=== PATIENT | female | born 1980 | race Caucasian/White ===

== ENCOUNTER → 2016-09-11 | Outpatient (CLI) | payer BC ==
[~2016-09-11] MED LIST: ADVAIR IH; ALBUTEROL SULF0.5 ML IH; ALBUTEROL0.09 MG/A1 IH; AMOXICILLIN 50500 MG PO; CLONAZEPAM PO; DOXYCYCLINE100 M3 PO; FLAGYL500 MG PO; IBU400 MG PO; KLONOPIN 0.5MG0.5 MG PO; LEVAQUIN 750MG750 M1 PO; NORCO 325 MG-51 TAB PO; PAXIL PO; PREDNISONE20 MG PO; PRENATAL1 TA1 PO; PROVENTIL0.09 MG/A1 IH; RT ADVAIR 228 DISKUS IH; SINGULAIR 110 MG/TAB PO; VENTOLIN0.09 MG IH; WELLBUTRIN SR150 MG PO; ZITHROMAX Z PA250 MG PO; ZOFRAN ODT4 MG PO; ZOLOFT 100MG100 MG PO; ZYRTEC5 MG PO
== END ==
LOC: BHSO 11:39
DX: F41.1 Generalized anxiety disorder (principal)

== ENCOUNTER → 2017-04-14 | Outpatient (CLI) | payer BC | LOC: BHSO 12:55 | DX: F33.41 Major depressive disorder, recurrent, in partial remission (principal) ==

== ENCOUNTER → 2017-05-13 | Outpatient (CLI) | payer BC | LOC: BHSO 14:37 | DX: F41.1 Generalized anxiety disorder (principal) ==

== ENCOUNTER → 2018-01-16 | Outpatient (CLI) | payer BC | LOC: BHSO 14:05 | DX: F33.41 Major depressive disorder, recurrent, in partial remission (principal) | CPT/HCPCS: G0463 ==

== ENCOUNTER → 2018-06-24 | Outpatient (CLI) | payer BC | LOC: COL.RAD 09:40 | DX: N92.6 Irregular menstruation, unspecified (principal) ==

== ENCOUNTER → 2020-02-09 | Outpatient (CLI) | payer BC | LOC: ZCOL.LAB 17:44 | DX: R05 Cough (principal); M79.10 Myalgia, unspecified site; J02.9 Acute pharyngitis, unspecified; R11.2 Nausea with vomiting, unspecified; Z20.828 Contact with and (suspected) exposure to other viral communicable diseases ==

== ENCOUNTER 2020-08-13 18:31 | Emergency (ER) | payer BC ==
[2009-04-20 01:32] VITALS: BP 141/93
[~2020-08-13] VITALS: Ht 160 cm; Wt 97.7 kg
[2020-08-13 18:36] VITALS: TEMP 97.8
[2020-08-13] MEDS ORDERED: TOPAMAX 25MG25 M1 PO (18:49)
[2020-08-13 20:44] VITALS: BP 141/71; PULSE 83
== END 2020-08-13 20:44 | disposition home or self-care (01) ==
LOC: COL.ER 18:31
DX: S91.311A Laceration without foreign body, right foot, initial encounter (principal); Z87.891 Personal history of nicotine dependence; W20.8XXA Other cause of strike by thrown, projected or falling object, initial encounter

== ENCOUNTER 2021-09-11 10:50 | Emergency (ER) | payer BC ==
[~2021-09-11] VITALS: Ht 160 cm; Wt 95.5 kg
[~2021-09-11 10:50] MED LIST changes: +TOPAMAX 25MG25 M1 PO
[2021-09-11 11:06] VITALS: TEMP 98
[2021-09-11 11:27] LABS: BASO # 0.1 K/mm3 (0.0-0.2); EOS # 0.8 K/mm3 (0.0-0.7); EOS % 8.4 % (0.0-4.0); GRAN # 5.4 K/mm3 (1.4-6.5); GRAN % 56.2 % (42.2-75.2); HEMOGLOBIN 12.3 g/dl (12.5-16.0); LYMPH # 2.7 K/mm3 (1.2-3.4); LYMPH % 27.4 % (20.0-51.0); MEAN CELL VOLUME 85 fl (80.0-100.0); MEAN CORPUSCULAR HEMOGLOBIN 29 pg (27-31); MEAN CORPUSCULAR HGB CONC 34 g/dl (33.0-37.0); MEAN PLATELET VOLUME 10.4 fl (7.4-10.4); MONO # 0.7 K/mm3 (0.1-0.6); MONO % 6.8 % (1.7-9.3); PLATELET COUNT 287 K/mm3 (130-400); REDCELL DISTRIBUTION WIDTH-CV 14.8 % (11.5-14.5)
[2021-09-11 11:28] LABS: HEMATOCRIT 36.6 % (37.0-47.0)
[2021-09-11 11:45] LABS: ALANINE AMINOTRANSFERASE 17 U/L (0-55); ALBUMIN 4.3 gm/dL (3.5-5.0); ALKALINE PHOSPHATASE 47 U/L (40-150); ANION GAP 11 mmol/L (7-16); AST,SGOT 13 U/L (5-34); BILIRUBIN,TOTAL 0.4 mg/dL (0.2-1.2); BLOOD UREA NITROGEN 13 mg/dL (7-19); CALCIUM 9.4 mg/dL (8.4-10.2); CARBON DIOXIDE 20 mmol/L (22-29); CHLORIDE 108 mmol/L (98-107); CREATININE, serum 0.75 mg/dL (0.57-1.11); GLUCOSE 97 mg/dL (70-99); POTASSIUM 4.1 mmol/L (3.5-4.5); SODIUM 139 mmol/L (136-145); TOTAL PROTEIN 7.6 gm/dL (6.2-8.1)
[2021-09-11 11:52] LABS: TROPONIN-I < 0.010 ng/mL (0.00-0.033)
[2021-09-11 12:48] VITALS: BP 141/97; PULSE 66
== END 2021-09-11 12:51 | disposition home or self-care (01) ==
LOC: COL.ER 10:50
PROVIDERS: Emergency Medicine
DX: R07.89 Other chest pain (principal)